=== PATIENT | male | born 1965 | race Caucasian/White ===

== ENCOUNTER 2016-11-17 19:20 | Emergency (ER) | payer BC ==
[~2016-11-17] VITALS: Ht 167.6 cm; Wt 107.2 kg
[2016-11-17] MEDS ORDERED: ASPI81TA85 PO (19:41)
[2016-11-17] MEDS ORDERED: MULT1TAB18 PO (19:41)
[2016-11-17] MEDS ORDERED: METO100T7 PO (19:41)
[2016-11-17] MEDS ORDERED: LISI-538 PO (19:41)
[2016-11-17] MEDS ORDERED: APIXABAN 5 MG TAB (ELIQUIS) PO ONE (20:45)
[2016-11-17 21:01] LABS: ANION GAP 10 MEQ/L (8-16); BLOOD UREA NITROGEN 11 MG/DL (7-18); CALCIUM LEVEL 8.8 MG/DL (8.5-10.1); CARBON DIOXIDE LEVEL 26 MEQ/L (21-32); CHLORIDE LEVEL 103 MEQ/L (98-107); CREATININE FOR GFR 0.91 MG/DL (0.70-1.30); GLOMERULAR FILTRATION RATE > 60.0 (>56); GLUCOSE, FASTING 242 MG/DL (70-105); SODIUM LEVEL 139 MEQ/L (136-145)
[2016-11-17 21:08] LABS: INR 0.91
[2016-11-17 21:43] LABS: BASO # 0.1 K/mm3 (0.0-0.2); BASO % 0.6 % (0.0-1.0); EOS # 0.6 K/mm3 (0.0-0.50); LARGE UNSTAINED CELL # 0.3 K/mm3 (0.0-0.4); LARGE UNSTAINED CELL % 2.8 % (0.0-4.0); MEAN CORPUSCULAR HEMOGLOBIN 31.9 pg (27.0-33.0); MEAN CORPUSCULAR HGB CONC 35.6 g/dl (32.0-36.5); MEAN CORPUSCULAR VOLUME 89.4 fl (80.0-96.0); MONO # 0.4 K/mm3 (0.0-0.8); MONO % 3.5 % (0.0-5.0); NEUTROPHILS # 0.9 K/mm3 (1.8-7.7); NEUTROPHILS % 9.1 % (36.0-66.0); RED CELL DISTRIBUTION WIDTH 12.7 % (11.5-14.5)
[2016-11-17 21:44] LABS: WHITE BLOOD COUNT 9.9 K/mm3 (4.0-10.0)
[2016-11-17 21:47] LABS: PLATELET COUNT, AUTOMATED 40 k/mm3 (150-450)
[2016-11-17] MEDS ORDERED: ELIQ5TAB PO (22:12)
[2016-11-17 22:26] VITALS: BP 142/80
== END 2016-11-17 22:38 | disposition home or self-care (01) ==
LOC: M ED 19:20
DX: I82.402 Acute embolism and thrombosis of unspecified deep veins of left lower extremity (principal); D69.6 Thrombocytopenia, unspecified; I10 Essential (primary) hypertension; F17.210 Nicotine dependence, cigarettes, uncomplicated; Z95.5 Presence of coronary angioplasty implant and graft; Z79.82 Long term (current) use of aspirin; Z79.899 Other long term (current) drug therapy

== ENCOUNTER → 2016-11-21 | Outpatient (REF) | payer BC ==
[~2016-11-21] MED LIST: ASPI81TA85 PO; ELIQ5TAB PO; LISI-538 PO; METO100T7 PO; MULT1TAB18 PO
[2016-11-21 18:21] LABS: IMMUNOGLOBULIN G 1350 MG/DL (681-1648); IMMUNOGLOBULIN M 106 MG/DL (40-230); TOTAL PROTEIN 7.7 GM/DL (6.4-8.2)
[2016-11-23 11:35] LABS: ALBUMIN 4.26 GM/DL (3.29-5.55); ALBUMIN % 55.3 % (55.8-66.1)
[2016-11-24 00:06] LABS: FREE KAPPA LIGHT CHAINS SERUM 24.5 mg/L (3.3-19.4); FREE LAMBDA LIGHT CHAINS SERUM 37.6 mg/L (5.7-26.3); KAPPA/LAMBDA RATIO SERUM 0.65 (0.26-1.65)
== END ==
LOC: M LAB REF 16:27
PROVIDERS: ATTEND Internal Medicine Medical Oncology
DX: D69.6 Thrombocytopenia, unspecified (principal); I82.90 Acute embolism and thrombosis of unspecified vein; D72.820 Lymphocytosis (symptomatic)

== ENCOUNTER → 2016-11-28 | Outpatient (REF) | payer BC | LOC: M LAB REF 12:43 | PROVIDERS: ATTEND Internal Medicine Medical Oncology | DX: D72.829 Elevated white blood cell count, unspecified (principal) ==

== ENCOUNTER → 2016-12-05 | Outpatient (REF) | payer BC ==
[2016-12-05 14:44] LABS: REASON FOR REVIEW COMPREHENSIVE REVIEW
== END ==
LOC: M LAB REF 13:28
PROVIDERS: ATTEND Internal Medicine Medical Oncology
DX: D72.820 Lymphocytosis (symptomatic) (principal); D69.6 Thrombocytopenia, unspecified; I82.402 Acute embolism and thrombosis of unspecified deep veins of left lower extremity

== ENCOUNTER → 2017-08-27 | Outpatient (REF) | payer BC ==
[2017-08-27 10:50] LABS: D-DIMER QUANT < 270.0 ng/ml (<500)
== END ==
LOC: M LAB REF 09:46
DX: C95.90 Leukemia, unspecified not having achieved remission (principal)

== ENCOUNTER 2017-12-27 07:04 | Day surgery (SDC) | payer BC ==
[2017-12-27] MEDS: NS 1,000 ML IV (06:00)
[~2017-12-27 07:04] MED LIST changes: -ASPI81TA85 PO; -ELIQ5TAB PO; +LIDOCAINE 2% INJ 100 MG/5 ML SDV (FOR ANES.) As Ordered; -LISI-538 PO; -METO100T7 PO; -MULT1TAB18 PO; +PROPOFOL 200 MG/20 ML VIAL As Ordered
[2017-12-27] MEDS ORDERED: PROPOFOL 200 MG/20 ML VIAL As Ordered (08:10)
== END 2017-12-27 08:57 | disposition home or self-care (01) ==
LOC: M OPP 07:04
DX: R19.5 Other fecal abnormalities (principal); K62.1 Rectal polyp; D12.7 Benign neoplasm of rectosigmoid junction; K57.30 Diverticulosis of large intestine without perforation or abscess without bleeding; I10 Essential (primary) hypertension; Z95.5 Presence of coronary angioplasty implant and graft; I25.10 Atherosclerotic heart disease of native coronary artery without angina pectoris; E78.5 Hyperlipidemia, unspecified; E11.9 Type 2 diabetes mellitus without complications; Z86.718 Personal history of other venous thrombosis and embolism; G47.30 Sleep apnea, unspecified; D69.1 Qualitative platelet defects; F17.210 Nicotine dependence, cigarettes, uncomplicated; Z79.82 Long term (current) use of aspirin; Z79.899 Other long term (current) drug therapy; Z79.84 Long term (current) use of oral hypoglycemic drugs
CPT/HCPCS: 45385

== ENCOUNTER 2018-08-19 10:55 | Outpatient (CLI) | payer BC ==
[~2018-08-19] VITALS: Ht 167.6 cm; Wt 103.0 kg
[2018-08-19] VITALS (13 sets, daily range): BP systolic 118–146; BP diastolic 72–98
[~2018-08-19 10:55] MED LIST changes: +ASPI81TA85 PO; +CAND32TA PO; +ELIQ5TAB PO; -LIDOCAINE 2% INJ 100 MG/5 ML SDV (FOR ANES.) As Ordered; +LISI-538 PO; +LOSA100T5 PO; +METF500T13 PO; +METO100T7 PO; +METO1TAB33; +MULT1TAB18 PO; +PRED20TA PO; -PROPOFOL 200 MG/20 ML VIAL As Ordered; +PROTPAK PO; +ROSU5TAB4
[2018-08-19] MEDS ORDERED: IMMUNE GLOBULIN 10% 20 GM in APPROPRIATE DILUENT 1 EA IV ONE (12:00)
[2018-08-19] MEDS ORDERED: ACETAMINOPHEN TAB 650MG DOSE (2X325MG) PO ONE (12:00)
[2018-08-19] MEDS ORDERED: IMMUNE GLOBULIN 10% 80 GM in APPROPRIATE DILUENT 1 EA IV ONE (12:00)
[2018-08-19] MEDS ORDERED: diphenhydrAMINE 25 MG CAP PO ONE (12:00)
== END 2018-08-19 20:22 | disposition home or self-care (01) ==
LOC: M OPCLIPED 10:55 → M MSPAV 11:17 → M OPCLIPED 20:22
PROVIDERS: ATTEND Internal Medicine Hematology & Oncology
DX: D69.6 Thrombocytopenia, unspecified (principal)
CPT/HCPCS: 96374; 96376; J1459

== ENCOUNTER 2018-08-20 09:14 | Outpatient (CLI) | payer BC ==
[2018-08-19 19:36] VITALS: BP 138/84
[2018-08-19 20:01] VITALS: BP 138/80
[~2018-08-20] VITALS: Ht 165.1 cm; Wt 103.3 kg
[2018-08-20] VITALS (8 sets, daily range): BP systolic 140–152; BP diastolic 82–88
[2018-08-20] MEDS ORDERED: IMMUNE GLOBULIN 10% 80 GM in APPROPRIATE DILUENT 1 EA IV ONE (09:45)
[2018-08-20] MEDS ORDERED: diphenhydrAMINE 25 MG CAP PO ONE (09:45)
[2018-08-20] MEDS ORDERED: IMMUNE GLOBULIN 10% 20 GM in APPROPRIATE DILUENT 1 EA IV ONE (09:45)
[2018-08-20] MEDS ORDERED: ACETAMINOPHEN TAB 650MG DOSE (2X325MG) PO ONE (09:45)
[2018-08-29] MEDS ORDERED: PROTPAK PO (09:15)
== END 2018-08-20 15:20 | disposition home or self-care (01) ==
LOC: M INFU 09:14
PROVIDERS: ATTEND Internal Medicine Hematology & Oncology
DX: D69.6 Thrombocytopenia, unspecified (principal)
CPT/HCPCS: 96365; 96366; J1459

== ENCOUNTER → 2020-01-15 | Outpatient (CLI) | payer BC ==
[~2020-01-15] MED LIST changes: -ASPI81TA85 PO; +ASPI81TA86 PO; +BRIL90TA PO; +CLOP75TA2 PO; +JANU100T PO; +LOSA50TA5 PO; +MULT1TAB74 PO; +OMEP40CA97 PO; +PRED5PAK2 PO; -ROSU5TAB4; +ROSU5TAB5
--- NOTE | 2020-02-10 10:48 | REP ---
COMPLETE ABDOMINAL ULTRASOUND: CLINICAL: Splenomegaly and elevated liver function tests. TECHNIQUE: Real time, blake scale and color Doppler evaluation using curved array transducer. FINDINGS: The liver demonstrates increased echogenicity suggesting fatty infiltration without focal hepatic lesion identified. The pancreas is normal in appearance, size and echotexture. The spleen is enlarged and measures 13.7 x 12.9 x 6.2 cm and demonstrates punctate calcifications consistent with prior granulomatous disease (splenic index equal 1095). The gallbladder is normal and without gallstones, wall thickening or pericholecystic fluid. No biliary ductal dilatation is appreciated and the common bile duct measures 4.7 mm in diameter. The bilateral kidneys are normal in reniform shape without hydronephrosis. The right kidney measures 12.0 x 6.2 x 5.5 cm and includes a 9 mm upper pole simple cyst. The left kidney measures 13.6 x 5.5 x 6.7 cm without cystic abnormality. The abdominal aorta is normal. There is no ascites in the visualized abdomen. Doppler interrogation demonstrates normal wave patterns, velocities and flow directions through the portal system and hepatic veins. The hepatic artery is normal with peak systolic velocity at 144 cm/s (RI equals 0.54). Of note, the main portal vein is dilated to 18 mm. IMPRESSION: 1. Splenomegaly and evidence for prior granulomatous disease without significant focal splenic lesions identified. 2. Hepatosteatosis. 3. Mildly dilated main portal vein. The vasculature demonstrates normal flow direction and velocities and wave patterns. MTDD
== END ==
LOC: M RAD 06:43
PROVIDERS: ATTEND Internal Medicine Gastroenterology
DX: R16.1 Splenomegaly, not elsewhere classified (principal); K76.6 Portal hypertension; R94.5 Abnormal results of liver function studies; K76.89 Other specified diseases of liver

== ENCOUNTER 2022-09-22 07:32 | Day surgery (SDC) | payer BC ==
[~2022-09-22] VITALS: Ht 162.6 cm; Wt 97.5 kg
[~2022-09-22 07:32] MED LIST changes: +ASPI81CH33 PO; -CAND32TA PO; +CAND32TA2 PO; +COQ-30CA2 PO; +JARD1TAB PO; -LISI-538 PO; +LISI20TA33 PO; -METO1TAB33; +METO1TAB33 PO; +MULT-90 PO; +NS 1,000 ML IV ONE; +OMEP40CA4 PO; -OMEP40CA97 PO; -ROSU5TAB5; +ROSU5TAB5 PO; +SEMA1PEN2 SQ
[2022-09-22] MEDS ORDERED: propofoL 200 MG/20 ML VIAL As Ordered ONE ×3 (09:12→09:39)
[2022-09-22 10:20] VITALS: BP 122/77
== END 2022-09-22 10:24 | disposition home or self-care (01) ==
LOC: M OPP 07:32
PROVIDERS: ATTEND Internal Medicine Gastroenterology
DX: Z12.11 Encounter for screening for malignant neoplasm of colon (principal); K64.8 Other hemorrhoids; K57.30 Diverticulosis of large intestine without perforation or abscess without bleeding; F17.290 Nicotine dependence, other tobacco product, uncomplicated; Z79.02 Long term (current) use of antithrombotics/antiplatelets; Z79.82 Long term (current) use of aspirin; Z79.84 Long term (current) use of oral hypoglycemic drugs; Z79.899 Other long term (current) drug therapy; Z88.5 Allergy status to narcotic agent